=== PATIENT | female | born 1965 | race Caucasian/White ===

== ENCOUNTER 2024-05-12 12:50 | Day surgery (SDC) | payer OTHER, SELFPAY ==
--- NOTE | 2024-05-12 | PATH_ITS ---
[facility] Accession Number: [id number] No. of containers..02 Tissue . 01 Material submitted: . PART A: colon - TRANSVERSE COLON POLYP PART B: colon - DESCENDING COLON X2 . 01 Diagnosis: Part A: TRANSVERSE COLON POLYP: Scant acellular debris. No intact tissue present. . Part B: DESCENDING COLON X2: Hyperplastic polyps. STO 05/14/2024 1724 Local . 01 Electronically signed: . Geoffrey Amin MD, Pathologist NPI- [id number] . 01 Gross description: . A. Received in formalin with two patient identifiers and transverse colon polyp, is a single cochran to yellow fragment of possible debris measuring 0.2 cm in greatest dimension, submitted entirely in A1. . B. Received in formalin with two patient identifiers and descending colon, are three cochran to brown soft tissue fragments, 0.4 to 0.6 cm in greatest dimension, submitted in B1. ([id number]) /MRV 05/14/2024 1724 Local . 01 Pathologist provided ICD-10: K63.5 . 01 CPT . 422896, [id number] Specimen Comment: A courtesy copy of this report has been sent to [phone] Performed at: [address] [address], [place], [place] [id number] MD Geoffrey Amin MD Phone: [phone]
[2024-05-12 13:43] VITALS: BP 128/86; PULSE 82; RESP 18; TEMP 36.3; O2SAT 98
--- NOTE | 2024-05-12 13:51 | P.HP_ITS ---
History of Present Illness History of Present Illness Date Patient Seen: 05/12/24 Time Patient Seen: 13:51 Chief complaint: SDC Narrative: 58-year-old female with a family history of colon cancer in her dad in his 40s. She has a personal history of colon polyps. Last exam was 3 years ago in [place]. I have not seen the report nor pathology. She tells me she has a long colon. [facility] Social History Smoking Status: Former smoker alcohol intake: never Meds Home Medications and Allergies Allergies Allergy/AdvReac Type Severity Reaction Status Date / Time No Known Drug Allergies Allergy Verified 05/12/24 13:41 Review of Systems Review of Systems ROS: Yes All systems reviewed with the patient and are negative except as otherwise documented Exam Vital Signs (past 8 hours): - 05/12/24 13:43 Temperature 97.4 F L Pulse Rate 82 Respiratory Rate 18 Blood Pressure 128/86 Pulse Oximetry 98 Oxygen Delivery Method Room Air Oxygen Delivery Method Room Air Const General: cooperative HENMT Head: normal to inspection Eyes General: appearance normal, both eyes and all related structures Neck Neck: normal visual inspection Chest Chest: normal inspection of the chest Resp Effort & Inspection: normal respiratory effort Cardio Rate: regular rate GI Inspection: normal to inspection Skin General: no rashes or lesions noted Neuro General: patient alert and patient awake Extrem General: normal to inspection and no pedal edema Psych Appearance: grossly normal Assessment & Plan Assessment & Plan narrative: 58-year-old female with a family history of colon cancer and a personal history of colon polyps. Surveillance colonoscopy is pursued today. Time-Based Coding :: [TOTAL MINUTES] spent with patient and on the chart (including review of chart, obtaining history, exam, reviewing outside data, placing orders, documenting exam and treatment plan, and counseling patient) on [DATE].
--- NOTE | 2024-05-12 13:52 | PM.PREOP ---
Pre-operative Note Interval Note History & Physical reviewed/Exam performed by Physician: Yes Changes to H&P: No ASA Class (for procedural sedation): I
--- NOTE | 2024-05-12 16:03 | PM.OP.COLON ---
Operative Date/Time/Diagnoses Date of procedure: 05/12/24 Time of procedure: 16:03 Pre-op diagnosis: Personal history of colon polyps and family history of colon cancer Post-op diagnosis: same Procedure & Clinicians Study performed: Colonoscopy with hot snare polypectomy and submucosal saline injection Same procedure as scheduled: Yes Indications: Family history of colon cancer and personal history of colon polyps Surgeon: Eric Overton Procedure Notes SCOAP/Timeout: Done Procedure in detail: After the risks and benefits were explained, written and verbal informed consent was obtained. The patient was brought into the procedure room and placed into the left lateral decubitus position. Please see anesthesia note for sedation details. Digital rectal examination was accomplished. The scope was introduced into the patient and advanced under direct visualization to the cecum as identified by the appendiceal orifice and ileocecal valve. The scope was slowly withdrawn to carefully examine the mucosa for any defects or lesions. Comprehensive imaging was accomplished throughout the rectum including the dentate line. The colon was decompressed, the scope was then removed from the patient who tolerated the procedure well. Procedure time was prolonged as below secondary to a very difficult navigation and multiple colon polyps to manage. Twenty-two modifier is therefore requested. Pediatric colonoscope Bowel prep adequate Scope withdrawal time: 23 minutes Sedation minutes: 64 Complications: none Impression: Initial attempt at navigation with the adult colonoscope failed. We could not navigate beyond the splenic flexure secondary to significant looping. We attempted patient position change, pressure, use of the stiffening marla and I felt that I could not push beyond a loop that was forming. We swapped out for pediatric colonoscope and with great difficulty were able to arrive in the cecum. Patient has not exceptionally redundant colon which was quite prone to looping. In the transverse colon there was an approximately 7 mm flat sessile polyp that received an approximately 3 mL submucosal saline injection for lift. I then removed the polyp with hot snare. In the descending colon there was a 6 mm flat sessile polyp removed with hot snare. Also in the descending colon was a slightly more polypoid but mostly sessile 7 mm polyp removed with hot snare. Endoscopic diagnosis 1. Redundant colon 2. Multiple colon polyps Post-procedure Plan for aftercare: 1. Await histology 2. If adenomatous features are confirmed, repeat colonoscopy would be suggested for 3 years' time. I would suggest a 1 hour slot to allow for the increased time it takes for navigation purposes. Disposition: PACU
[2024-05-12 16:07] VITALS: BP 105/71; PULSE 71; RESP 16; TEMP 36.6; O2SAT 96
[2024-05-12 16:12] VITALS: BP 101/70; PULSE 67; RESP 16; O2SAT 98
[2024-05-12 16:18] VITALS: BP 101/64; PULSE 72; RESP 12; O2SAT 100
[2024-05-12 16:23] VITALS: BP 114/76; PULSE 66; RESP 12; O2SAT 100
== END 2024-05-12 16:36 | disposition home or self-care (01) ==
PROVIDERS: Referring Provider Internal Medicine Gastroenterology; Visit Provider Internal Medicine Gastroenterology
PROC: 0DJD8ZZ Inspection of Lower Intestinal Tract, Via Natural or Artificial Opening Endoscopic (ICD-10-PCS; CPT 45378; principal; 2024-05-12 14:00)
DX: Z12.11 Encounter for screening for malignant neoplasm of colon (principal); Z86.0100 Personal history of colon polyps, unspecified; Z80.0 Family history of malignant neoplasm of digestive organs; K63.5 Polyp of colon
CPT/HCPCS: 45381; 45385; J2704